=== PATIENT | male | born 1970 ===

== ENCOUNTER → 2020-05-10 | Outpatient (CLI) | payer OTHER | LOC: LAB SHORT 08:00 → LAB 08:00 | DX: D38.5 Neoplasm of uncertain behavior of other respiratory organs (principal) | CPT/HCPCS: 88305 ==

== ENCOUNTER 2020-12-07 08:13 | Day surgery (SDC) | payer OTHER ==
[~2020-12-07] VITALS: Ht 182.9 cm; Wt 88.4 kg
[~2020-12-07 08:13] MED LIST: LOSA50 PO
== END 2020-12-07 10:39 | disposition home or self-care (01) ==
LOC: ORSCSDS 08:13
PROVIDERS: Surgery
PROC: 0DBN8ZX Excision of Sigmoid Colon, Via Natural or Artificial Opening Endoscopic, Diagnostic (ICD-10-PCS; principal; 2020-12-07 09:30)
DX: K62.5 Hemorrhage of anus and rectum (principal); Z86.010 Personal history of colon polyps; K63.5 Polyp of colon; I10 Essential (primary) hypertension; F17.210 Nicotine dependence, cigarettes, uncomplicated; Z79.899 Other long term (current) drug therapy
CPT/HCPCS: 88305; J2250; J2704; J7120

== ENCOUNTER 2023-06-05 07:56 | Inpatient (IN) | payer OTHER ==
[~2023-06-05] VITALS: Ht 182.9 cm; Wt 77.6 kg
[2023-06-05] MEDS ORDERED: Pepto-Bismol262 M1 (08:48)
[2023-06-05] MEDS ORDERED: Calcium Carbon500 MG (08:48)
[2023-06-05] MEDS ORDERED: LOPE2C (08:49)
[2023-06-05 09:13] LABS: BASOPHILS PERCENT AUTO 1 % (0-2); EOSINOPHILS ABSOLUTE AUTO 0.02 K/mm3 (0.00-0.68); EOSINOPHILS PERCENT AUTO 0 % (0-6); Hematocrit 37.8 % (37.0-53.0); Hemoglobin 13.3 g/dL (13.5-17.5); IMMATURE GRAN ABSOLUTE AUTO 0.15 K/mm3 (0.00-0.10); IMMATURE GRAN PERCENT AUTO 1 % (0-1); LYMPHOCYTES ABSOLUTE AUTO 0.81 K/mm3 (0.84-5.20); LYMPHOCYTES PERCENT AUTO 4 % (21-46); MONOCYTES ABSOLUTE AUTO 2.36 K/mm3 (0.16-1.47); MONOCYTES PERCENT AUTO 11 % (4-13); Mean Corpuscular HGB 32.3 pg (26.0-34.0); Mean Corpuscular HGB Conc 35.2 g/dL (31.5-36.5); Mean Corpuscular Volume 92 fL (80-100); Mean Platelet Volume 9.2 fL (9.1-12.4); NEUTROPHILS ABSOLUTE AUTO 18.52 K/mm3 (1.96-9.15); NEUTROPHILS PERCENT AUTO 84 % (41-73); Platelet Count 466 K/mm3 (150-400); RDW Coefficient Variation 11.9 % (11.7-14.2); RDW Standard Deviation 40.4 fL (35.1-46.3); Red Blood Cell Count 4.12 M/mm3 (4.30-5.90); White Blood Cell Count 21.96 K/mm3 (4.00-11.30)
[2023-06-05 09:44] LABS: Albumin, Blood 2.2 g/dL (3.4-5.0); Albumin/Globulin Ratio 0.6 (0.8-1.8); Bilirubin, Total 0.5 mg/dL (0.1-1.0); Bun/Creatinine Ratio 9.3 (12.0-20.0); Calcium, Blood 8.3 mg/dL (8.5-10.1); Creatinine, Blood 0.76 mg/dL (0.60-1.20); Globulin, Blood 3.8 g/dL (2.2-4.0); Potassium, Blood 3.2 mmol/L (3.5-5.5)
[2023-06-05 13:14] VITALS: BP 115/72
--- NOTE | 2023-06-05 13:45 | NUR ---
ASSUMED CARE NOTE RECEIVED REPORT FROM NESSA IN THE ER AND ASSUMED CARE OF PT AT 1310. PT A&OX4, INDEPENDENT, VOIDING, AND TOLERATING PO. PT ABLE TO EAT JELLO AND DRINK SIPS OF WATER DURING ASSESSMENT. PT REPORTS BLOODY DIARRHEA W/ MUCUS. PAIN MANAGED PER EMAR. PT ORIENTED TO ROOM AND CALL LIGHT. CALL LIGHT WITHIN REACH AND PT ABLE TO MAKE NEEDS KNOWN.
[2023-06-05 15:53] VITALS: BP 116/75
--- NOTE | 2023-06-05 17:35 | NUR ---
SHIFT SUMMARY PT A&OX4, AMB IND, TOLERATING PO, AND VOIDING. PT ADMITS TO BLOODY DIARRHEA W/ MUCUS, DENIES N/V. PAIN MANAGED PER EMAR. NS @150 MLS/HR. CALL LIGHT WITHIN REACH AND PT ABLE TO MAKE NEEDS KNOWN.
[2023-06-05 20:20] VITALS: BP 135/85
[2023-06-06 04:57] VITALS: BP 112/71
--- NOTE | 2023-06-06 07:32 | NUR ---
Shift Summary Pt having frequent diahrrea, 3-4 through the night. Pt c/o of abdominal pain t/o the night which was well controlled by pain medications. Pt states he did have some nausea last night but not bad. Abdomen is tender to pressure. AOx4 and independent in the room.
[2023-06-06 07:50] VITALS: BP 119/77
[2023-06-06 12:59] LABS: Adenovirus F 40/41 Not Detected (NOT DETECT); Astrovirus Not Detected (NOT DETECT); Campylobacter Sp Not Detected (NOT DETECT); Cryptosporidium Not Detected (NOT DETECT); Cyclospora Cayetanensis Not Detected (NOT DETECT); E. Coli O157 Not Detected (NOT DETECT); Entamoeba Histolytica Not Detected (NOT DETECT); Enteroaggregative E. coli-EAEC Not Detected (NOT DETECT); Enteropathogenic E. coli-EPEC Not Detected (NOT DETECT); Enterotoxigenic E. coli-ETEC Not Detected (NOT DETECT); Giardia Lamblia Not Detected (NOT DETECT); Norovirus GI/GII Not Detected (NOT DETECT); Plesiomonas Shigelloides Not Detected (NOT DETECT); Rotavirus A Not Detected (NOT DETECT); Salmonella Sp Not Detected (NOT DETECT); Sapovirus Not Detected (NOT DETECT); Shiga Toxin-prod E. coli-STEC Not Detected (NOT DETECT); Shigella/Enteroin E. coli-EIEC Not Detected (NOT DETECT); Vibrio Cholerae Not Detected (NOT DETECT); Vibrio Sp Not Detected (NOT DETECT); Yersinia Enterocolitica Not Detected (NOT DETECT)
[2023-06-06 14:16] LABS: Albumin, Blood 1.7 g/dL (3.4-5.0); Anion Gap 4 mmol/L (6-16); Blood Urea Nitrogen 10 mg/dL (8-24); CO2, Blood 25 mmol/L (21-32); Calcium, Blood 7.8 mg/dL (8.5-10.1); Chloride, Blood 106 mmol/L (98-108); Creatinine, Blood 0.67 mg/dL (0.60-1.20); Glomerular Filtration Rate 112 (60-); Glucose, Blood 139 mg/dL (70-99); Phosphorus, Blood 3.4 mg/dL (2.5-4.9); Potassium, Blood 3.5 mmol/L (3.5-5.5); Sodium, Blood 135 mmol/L (136-145)
[2023-06-06 15:47] VITALS: BP 125/78
[2023-06-06 20:00] VITALS: BP 109/68
--- NOTE | 2023-06-06 20:12 | NUR ---
SHIFT SUMMARY- PT ALERT AND ORIENTED INDEPENDENT IN THE ROOM. NO ACUTE CHANGE T/O THE SHIFT, BEDSIDE REPORT COMPLETED WITH NIGHT RN. NS REDUCED TO 75ML/HR TODAY. PAIN APPEARS WELL MANAGED, MEDICATED WITH IV TORADOL PRIOR TO SHIFT CHANGE. NO S&S OF DISTRESS NOTED AT THE TIME OF REPORT.
[2023-06-07 03:58] VITALS: BP 122/77
[2023-06-07 05:07] LABS: Hematocrit 30.8 % (37.0-53.0); Hemoglobin 10.6 g/dL (13.5-17.5); Mean Corpuscular HGB Conc 34.4 g/dL (31.5-36.5); Mean Corpuscular Volume 93 fL (80-100); Mean Platelet Volume 9.5 fL (9.1-12.4); Platelet Count 444 K/mm3 (150-400); RDW Coefficient Variation 12.1 % (11.7-14.2); RDW Standard Deviation 41.9 fL (35.1-46.3); Red Blood Cell Count 3.31 M/mm3 (4.30-5.90); White Blood Cell Count 12.71 K/mm3 (4.00-11.30)
[2023-06-07 05:58] LABS: Albumin, Blood 1.6 g/dL (3.4-5.0); Anion Gap 7 mmol/L (6-16); Blood Urea Nitrogen 9 mg/dL (8-24); Bun/Creatinine Ratio 13.5 (12.0-20.0); CO2, Blood 24 mmol/L (21-32); Calcium, Blood 7.7 mg/dL (8.5-10.1); Chloride, Blood 104 mmol/L (98-108); Creatinine, Blood 0.67 mg/dL (0.60-1.20); Glomerular Filtration Rate 112 (60-); Glucose, Blood 99 mg/dL (70-99); Phosphorus, Blood 2.7 mg/dL (2.5-4.9); Potassium, Blood 3.2 mmol/L (3.5-5.5); Sodium, Blood 135 mmol/L (136-145)
[2023-06-07 06:06] LABS: BAND PERCENT MAN 28 % (0-8); BASOPHILS ABSOLUTE MAN 0.12 K/mm3 (0.00-0.23); BASOPHILS PERCENT MAN 1 % (0-2); EOSINOPHILS ABSOLUTE MAN 0.25 K/mm3 (0.00-0.68); EOSINOPHILS PERCENT MAN 2 % (0-6); LYMPHOCYTES PERCENT MAN 4 % (21-46); MONOCYTES ABSOLUTE MAN 1.39 K/mm3 (0.16-1.47); MONOCYTES PERCENT MAN 11 % (4-13); NEUTROPHILS ABSOLUTE MAN 10.42 K/mm3 (1.96-9.15); SEG NEUTROPHILS PERCENT MAN 54 % (41-73); TOTAL CELLS COUNTED 100
[2023-06-07 07:35] VITALS: BP 120/71
--- NOTE | 2023-06-07 07:38 | NUR ---
Shift Summary Pt continues to have frequent diahrrea with small amounts of blood and moderate-severe abdominal pain. Pt also had some nausea tonight, gave PRN Zofran and pain medications per EMAR. Rcving NS@75, AOx4, independent in the room.
--- NOTE | 2023-06-07 18:12 | NUR ---
SHIFT SUMMARY NO ACUTE CHANGES THIS SHIFT. CALL LIGHT WITHIN REACH AND PT ABLE TO MAKE NEEDS KNOWN.
[2023-06-07 19:42] VITALS: BP 121/68
--- NOTE | 2023-06-08 04:59 | NUR ---
SHIFT SUMMARY: PT IS ADMITTED FOR COLITIS AND IS A FULL CODE. IS ALERT AND ABLE TO MAKE NEED KNOWN. UP ADLIB KNOWING LIMITS AND CALLING FOR STAFF ASSISTANCE WHEN NEEDED. PAIN HAS BEEN CONTROLLED WITH PRN PAIN MANAGEMENT X1 THIS SHIFT. IV TO LEFT FOREARM IS PATENT AND RUNNING NS AT 75ML/H. IV TO RIGHT AC PARENT AND FLUSHED WITH 10ML NS. WAS GIVEN IN REPORT THAT HE HAS NOT EATEN VERY MUCH OVER AT LEAST THE LAST 24H. THIS SHIFT HE REQUESTED AND WAS PROVIDED SOME YOGURT X2, MINI CHEESE BRICKS X4, A MEAT SANDWICH, WAS PROVIDED HE ATE EVERYTHING BUT THE SANDWICH.
[2023-06-08 05:10] LABS: Hematocrit 31.9 % (37.0-53.0); Hemoglobin 10.9 g/dL (13.5-17.5); Mean Corpuscular HGB 31.5 pg (26.0-34.0); Mean Corpuscular HGB Conc 34.2 g/dL (31.5-36.5); Mean Corpuscular Volume 92 fL (80-100); Mean Platelet Volume 9.2 fL (9.1-12.4); Platelet Count 492 K/mm3 (150-400); RDW Standard Deviation 40.7 fL (35.1-46.3); Red Blood Cell Count 3.46 M/mm3 (4.30-5.90); White Blood Cell Count 9.95 K/mm3 (4.00-11.30)
[2023-06-08 05:25] VITALS: BP 129/81
[2023-06-08 05:40] LABS: Albumin, Blood 1.7 g/dL (3.4-5.0); Anion Gap 8 mmol/L (6-16); Blood Urea Nitrogen 6 mg/dL (8-24); Bun/Creatinine Ratio 8.6 (12.0-20.0); CO2, Blood 24 mmol/L (21-32); Calcium, Blood 7.6 mg/dL (8.5-10.1); Chloride, Blood 104 mmol/L (98-108); Glomerular Filtration Rate 111 (60-); Glucose, Blood 99 mg/dL (70-99); Phosphorus, Blood 3.2 mg/dL (2.5-4.9); Potassium, Blood 3.3 mmol/L (3.5-5.5); Sodium, Blood 136 mmol/L (136-145)
[2023-06-08 06:18] LABS: BAND PERCENT MAN 14 % (0-8); BASOPHILS PERCENT MAN 0 % (0-2); EOSINOPHILS PERCENT MAN 0 % (0-6); LYMPHOCYTES ABSOLUTE MAN 1.09 K/mm3 (0.84-5.20); LYMPHOCYTES PERCENT MAN 11 % (21-46); MONOCYTES ABSOLUTE MAN 1.19 K/mm3 (0.16-1.47); MONOCYTES PERCENT MAN 12 % (4-13); NEUTROPHILS ABSOLUTE MAN 7.66 K/mm3 (1.96-9.15); SEG NEUTROPHILS PERCENT MAN 63 % (41-73); TOTAL CELLS COUNTED 100
[2023-06-08 07:14] VITALS: BP 128/75
--- NOTE | 2023-06-08 17:40 | NUR ---
SHIFT SUMMARY: PT STATED THIS AFTERNOON THAT HE NOTED MORE BLOOD THAN USUAL IN HIS STOOL. REPORTED THIS TO DR. SULLIVAN, REQUESTED THAT LOVENOX BE D/C'D TO WHICH PROVIDER AGREED. TOLERATING PO FLUIDS AND ATTEMPTED TO EAT MORE. STARTED ON STEROIDS TODAY. MEDICATED FOR ABD PAIN PER EMAR. POTASSIUM REPLACED. INDEPENDENT IN ROOM.
[2023-06-08 20:05] VITALS: BP 110/70
[2023-06-09 04:50] LABS: Hematocrit 32.4 % (37.0-53.0); Mean Corpuscular HGB 31.3 pg (26.0-34.0); Mean Corpuscular Volume 92 fL (80-100); Mean Platelet Volume 9.1 fL (9.1-12.4); Platelet Count 557 K/mm3 (150-400); RDW Standard Deviation 40.4 fL (35.1-46.3); Red Blood Cell Count 3.52 M/mm3 (4.30-5.90); White Blood Cell Count 11.35 K/mm3 (4.00-11.30)
[2023-06-09 05:16] LABS: Albumin, Blood 1.8 g/dL (3.4-5.0); Anion Gap 5 mmol/L (6-16); Blood Urea Nitrogen 6 mg/dL (8-24); Bun/Creatinine Ratio 8.7 (12.0-20.0); CO2, Blood 27 mmol/L (21-32); Calcium, Blood 8.1 mg/dL (8.5-10.1); Chloride, Blood 107 mmol/L (98-108); Creatinine, Blood 0.69 mg/dL (0.60-1.20); Glomerular Filtration Rate 111 (60-); Glucose, Blood 135 mg/dL (70-99); Phosphorus, Blood 3.3 mg/dL (2.5-4.9); Potassium, Blood 3.6 mmol/L (3.5-5.5); Sodium, Blood 139 mmol/L (136-145)
[2023-06-09 05:54] LABS: BAND PERCENT MAN 15 % (0-8); BASOPHILS PERCENT MAN 0 % (0-2); EOSINOPHILS PERCENT MAN 0 % (0-6); LYMPHOCYTES % ATYPICAL MANUAL 1 % (0-0); LYMPHOCYTES ABSOLUTE MAN 0.68 K/mm3 (0.84-5.20); LYMPHOCYTES PERCENT MAN 5 % (21-46); MONOCYTES ABSOLUTE MAN 0.56 K/mm3 (0.16-1.47); MONOCYTES PERCENT MAN 5 % (4-13); SEG NEUTROPHILS PERCENT MAN 74 % (41-73); TOTAL CELLS COUNTED 100
[2023-06-09 07:07] VITALS: BP 128/83
--- NOTE | 2023-06-09 11:33 | NUR ---
PT REQUESTED TO GO TO HIS TRUCK TO GET HIS POWER CORD TO HIS PHONE WITH REASON HE NEEDS HIS PHONE IN HIS ROOM AT ALL TIMES SO HE CAN GET IMPORTANT PHONE CALLS. ON RETURN LEGAL ARBITRATORMoris MOON STATED SHE SMELLED CIGARETTE SMOKE ON PT AND ASKED IF HE HAD SMOKING MATERIALS ON HIM AND PT STATED "YES I DO." SARAI INFORMED PT OF NON SMOKING RULE IN HOSPITAL AND REQUESTED PT TO GIVE UP BINGO CALLER AND CIGARETTES IF HE HAD THEM DUE TO THE RULE. PT COMPLIED AND HANDED OVER A PACK OF [place]O'S AND A BINGO CALLER. ITEMS ARE LOCKED IN PT DRAWER OUTSIDE ROOM.
[2023-06-09 15:11] VITALS: BP 119/79
--- NOTE | 2023-06-09 19:30 | NUR ---
SHIFT SUMMARY: PT A/O X 4, IND IN ROOM PLEASANT AND COOPERATIVE. PT PAIN MANAGED WITH CURRENT MEDICATIONS. PT REPORTS EATING WELL AND TOLERATING FOOD. PT REPORTS HE HAD ABOUT 9 BM'S THROUGHOUT THE DAY AND BLOOD IN STOOL HAS TURNED FROM BRIGHT RED TO DARKER RED. PT DID REPORT HE MAY NEED A NICOTINE PATCH HE IS A SMOKER BUT IS HESITANT BECAUSE HE REPORTS HE HAS HAD BAD EXPERIENCE WITH NICOTINE PATCH. PT REPORTS HE SMOKES ABOUT 5 CIGARETTES PER DAY FOR THE PAST 5 WEEKS PRIOR HE SMOKED 1.5 PACKS. CIGARETTES AND LOG CARRIER OPERATOR WERE CONFISCATED THIS AM AND LOCKED IN DRAWER.
[2023-06-09 19:35] VITALS: BP 124/80
--- NOTE | 2023-06-10 04:10 | NUR ---
SHIFT SUMMARY JOSIE WAS ALERT AND FULLY ORIENTED AT START OF SHIFT. PT IND IN ROOM. PLEASANT AND COOPERATIVE. C/O DISCOMFORT IN ABD, HE SAYS ITS MORE OF A DISCOMFORT THAN PAIN. PT CONTINUES TO HAVE SMALL LOOSE STOOLS (3-4 TONIGHT). PT MEDICATED PER EMAR. NO ACUTE EVENTS TONIGHT, PT RESTING IN BED WITH CALL LIGHT IN REACH.
[2023-06-10 04:58] LABS: BASOPHILS ABSOLUTE AUTO 0.05 K/mm3 (0.00-0.23); BASOPHILS PERCENT AUTO 1 % (0-2); Hematocrit 31.1 % (37.0-53.0); Hemoglobin 10.6 g/dL (13.5-17.5); Mean Corpuscular HGB 31.5 pg (26.0-34.0); Mean Corpuscular HGB Conc 34.1 g/dL (31.5-36.5); Mean Corpuscular Volume 93 fL (80-100); Mean Platelet Volume 9.1 fL (9.1-12.4); Platelet Count 617 K/mm3 (150-400); RDW Standard Deviation 41.3 fL (35.1-46.3); Red Blood Cell Count 3.36 M/mm3 (4.30-5.90)
[2023-06-10 05:00] LABS: EOSINOPHILS ABSOLUTE AUTO 0.01 K/mm3 (0.00-0.68); EOSINOPHILS PERCENT AUTO 0 % (0-6); IMMATURE GRAN ABSOLUTE AUTO 0.07 K/mm3 (0.00-0.10); IMMATURE GRAN PERCENT AUTO 1 % (0-1); LYMPHOCYTES PERCENT AUTO 14 % (21-46); MONOCYTES ABSOLUTE AUTO 1.53 K/mm3 (0.16-1.47); MONOCYTES PERCENT AUTO 15 % (4-13); NEUTROPHILS ABSOLUTE AUTO 7.04 K/mm3 (1.96-9.15); NEUTROPHILS PERCENT AUTO 70 % (41-73)
[2023-06-10 05:44] VITALS: BP 129/87
[2023-06-10 06:00] LABS: Albumin, Blood 1.9 g/dL (3.4-5.0); Albumin/Globulin Ratio 0.6 (0.8-1.8); Bilirubin, Total 0.2 mg/dL (0.1-1.0); Bun/Creatinine Ratio 15.8 (12.0-20.0); Calcium, Blood 8.2 mg/dL (8.5-10.1); Creatinine, Blood 0.63 mg/dL (0.60-1.20); Globulin, Blood 3.3 g/dL (2.2-4.0); Potassium, Blood 3.5 mmol/L (3.5-5.5); Total Protein, Blood 5.2 g/dL (6.4-8.2)
[2023-06-10 07:27] VITALS: BP 130/85
--- NOTE | 2023-06-10 14:20 | NUR ---
PT CALLED AND UPON ENTERING HE WAS FULLY DRESSED. PT REQUESTED HIS CIGARETTES AND FUR FINISHER TAILOR THAT WAS LOCKED UP IN DRAWER. PT INFORMED OF RULE THIS IS A NON SMOKING CAMPUS AND HE IS NOT ALLOWED TO SMOKE ON THE GROUNDS. PT STATED "I DON'T CARE IT'S A STUPID RULE." PT THEN INFORMED IF HE CONTINUED TO TAKE HIS SMOKING MATERIALS WITH HIM TO HIS CAR HE WOULD BE HAVE TO HAVE A SITTER WATCH HIM. PT STATED "OKAY, GIVE ME MY FUR FINISHER TAILOR AND CIGARETTES." PT GIVEN HIS SMOKING MATERIALS REQUESTED. BIOCHEMISTRY TEACHER ANITA INFORMED OF INCIDENT. SECURITY CALLED AND GAVE DESCRIPTION OF PT AND LET THEM KNOW HIS INTENTIONS TO GO TO HIS VEHICLE WITH HIS CIGARETTES AND FUR FINISHER TAILOR.
--- NOTE | 2023-06-10 14:30 | NUR ---
PT RETURNED FROM OUTSIDE. PT ASKED IF HE WOULD LIKE TO HAVE A NICOTINE PATCH ORDERED AND PT AGREED. DR. HARDIN NOTIFIED PT WILL BE HAVING A 1:1 SITTER FOR IGNITION RISK. DR. HARDIN STATED HE WOULD PLACE ORDER FOR A NICOTINE PATCH.
[2023-06-10 15:29] VITALS: BP 119/85
--- NOTE | 2023-06-10 18:04 | NUR ---
SHIFT SUMMARY: PT A/O X 4 IND IN ROOM, PLEASANT. 1:1 SITTER PLACED FOR IGNITION RISK. PT HAS NICOTINE PATCH IN PLACE. PT REPORTS LESS FREQUENT BM'S, THEY ARE STILL BLOODY. ABD PAIN MANAGED WITH TRAMADOL AT THIS TIME.
[2023-06-10 19:28] VITALS: BP 130/75
[2023-06-11 04:25] VITALS: BP 133/86
--- NOTE | 2023-06-11 04:54 | NUR ---
SHIFT SUMMARY PATIENT IS A/O X4, PLEASANT, ABLE TO MAKE HIS NEEDS KNOWN AND CALLS APPROPRIATELY. PATIENT REPORTS HAVING 4-5 BM'S THIS SHIFT, LAST BM PATIENT USED A HAT-HE REPORTED NOT MUCH BLOOD IN A PREVIOUS BM-SCANT AMOUNT OF BLOOD SEEN IN STOOL. PATIENT C/O ABDOMINAL PAIN-MEDICATED PER EMAR X1. PATIENT REPORTS THAT HIS LAST BM WAS THE FIRMEST BM HE HAS HAD SINCE THIS STARTED. PATIENT IS INDEPENDENT IN ROOM. PATIENT HAS ONE ON ONE SITTER. NO S/S OF DISTRESS NOTED AT THIS TIME.
[2023-06-11 07:42] VITALS: BP 134/87
[2023-06-11 08:42] LABS: BASOPHILS ABSOLUTE AUTO 0.05 K/mm3 (0.00-0.23); BASOPHILS PERCENT AUTO 0 % (0-2); EOSINOPHILS ABSOLUTE AUTO 0.03 K/mm3 (0.00-0.68); EOSINOPHILS PERCENT AUTO 0 % (0-6); Hematocrit 36.3 % (37.0-53.0); Hemoglobin 12.1 g/dL (13.5-17.5); Mean Corpuscular HGB 31.1 pg (26.0-34.0); Mean Corpuscular HGB Conc 33.3 g/dL (31.5-36.5); Mean Corpuscular Volume 93 fL (80-100); Mean Platelet Volume 8.4 fL (9.1-12.4); Platelet Count 672 K/mm3 (150-400); RDW Coefficient Variation 12.2 % (11.7-14.2); RDW Standard Deviation 41.8 fL (35.1-46.3); Red Blood Cell Count 3.89 M/mm3 (4.30-5.90); White Blood Cell Count 12.99 K/mm3 (4.00-11.30)
[2023-06-11 08:44] LABS: IMMATURE GRAN ABSOLUTE AUTO 0.22 K/mm3 (0.00-0.10); IMMATURE GRAN PERCENT AUTO 2 % (0-1); LYMPHOCYTES ABSOLUTE AUTO 2.45 K/mm3 (0.84-5.20); LYMPHOCYTES PERCENT AUTO 19 % (21-46); MONOCYTES ABSOLUTE AUTO 1.79 K/mm3 (0.16-1.47); MONOCYTES PERCENT AUTO 14 % (4-13); NEUTROPHILS ABSOLUTE AUTO 8.45 K/mm3 (1.96-9.15); NEUTROPHILS PERCENT AUTO 65 % (41-73)
[2023-06-11 09:02] LABS: BAND PERCENT MAN 1 % (0-8); BASOPHILS PERCENT MAN 0 % (0-2); EOSINOPHILS PERCENT MAN 0 % (0-6); LYMPHOCYTES ABSOLUTE MAN 1.94 K/mm3 (0.84-5.20); LYMPHOCYTES PERCENT MAN 15 % (21-46); MONOCYTES ABSOLUTE MAN 1.03 K/mm3 (0.16-1.47); MONOCYTES PERCENT MAN 8 % (4-13); SEG NEUTROPHILS PERCENT MAN 76 % (41-73); TOTAL CELLS COUNTED 100
[2023-06-11 09:29] LABS: Albumin, Blood 2.2 g/dL (3.4-5.0); Albumin/Globulin Ratio 0.6 (0.8-1.8); Bilirubin, Total 0.2 mg/dL (0.1-1.0); Bun/Creatinine Ratio 14.9 (12.0-20.0); Calcium, Blood 8.4 mg/dL (8.5-10.1); Creatinine, Blood 0.74 mg/dL (0.60-1.20); Globulin, Blood 3.4 g/dL (2.2-4.0); Potassium, Blood 3.7 mmol/L (3.5-5.5); Total Protein, Blood 5.6 g/dL (6.4-8.2)
[2023-06-11 15:08] VITALS: BP 113/80
[2023-06-11 19:14] VITALS: BP 124/77
--- NOTE | 2023-06-11 19:53 | NUR ---
SHIFT SUMMARY: ROBSON IS A&OX4. VSS, NO ACUTE EVENTS OVERNIGHT. HE IS INDEPENDENT IN THE ROOM, TOLERATING PO INTAKE WELL, CONTINENT OF BOWEL AND BLADDER, AND REPORTS ADEQUATE PAIN CONTROL THIS SHIFT. BILATERAL IV'S PATENT, BUT DEMONSTRATED SCANT LEAKAGE WITH FLUSHING. PT REPORTS BLOOD IN STOOLS, PROVIDER AWARE. PT IS SITTING UP IN BED WITH THE CALL LIGHT IN REACH. REPORT WAS GIVEN TO PHARMACY STUDENT RN.
[2023-06-12 04:16] VITALS: BP 133/84
--- NOTE | 2023-06-12 04:27 | NUR ---
SHIFT SUMMARY NOC PT A/O X 4. PLEASANT AND COOPERATIVE WITH CARE. NO ACUTE CHANGES TO REPORT. PT STILL ON DIRECT OBSERVATION DUE TO IGNITION SOURCE RISK. SITTER HAS BEE SITTING IN ROOM TO BETTER HELP PT GET SOME SLEEP. PT ABD PAIN HAS BEEN MANAGED PER EMAR. STOOL SAMPLE IS STILL PENDING. PT IS CURRENTLY RESTING WITH BED IN LOWEST POSITION, AND CALL LIGHT WITHIN REACH.
[2023-06-12 07:33] VITALS: BP 119/83
[2023-06-12 09:47] LABS: BASOPHILS ABSOLUTE AUTO 0.06 K/mm3 (0.00-0.23); BASOPHILS PERCENT AUTO 1 % (0-2); EOSINOPHILS ABSOLUTE AUTO 0.04 K/mm3 (0.00-0.68); EOSINOPHILS PERCENT AUTO 0 % (0-6); Hematocrit 35.1 % (37.0-53.0); Mean Corpuscular HGB Conc 34.2 g/dL (31.5-36.5); Mean Corpuscular Volume 94 fL (80-100); Mean Platelet Volume 9.3 fL (9.1-12.4); Platelet Count 568 K/mm3 (150-400); RDW Coefficient Variation 12.3 % (11.7-14.2); RDW Standard Deviation 42.3 fL (35.1-46.3); Red Blood Cell Count 3.75 M/mm3 (4.30-5.90); White Blood Cell Count 13.28 K/mm3 (4.00-11.30)
[2023-06-12 09:50] LABS: IMMATURE GRAN ABSOLUTE AUTO 0.17 K/mm3 (0.00-0.10); IMMATURE GRAN PERCENT AUTO 1 % (0-1); LYMPHOCYTES ABSOLUTE AUTO 2.11 K/mm3 (0.84-5.20); LYMPHOCYTES PERCENT AUTO 16 % (21-46); MONOCYTES ABSOLUTE AUTO 0.98 K/mm3 (0.16-1.47); MONOCYTES PERCENT AUTO 7 % (4-13); NEUTROPHILS ABSOLUTE AUTO 9.92 K/mm3 (1.96-9.15); NEUTROPHILS PERCENT AUTO 75 % (41-73)
[2023-06-12 10:10] LABS: BAND PERCENT MAN 1 % (0-8); BASOPHILS PERCENT MAN 0 % (0-2); Bun/Creatinine Ratio 20.2 (12.0-20.0); Calcium, Blood 8.2 mg/dL (8.5-10.1); Creatinine, Blood 0.65 mg/dL (0.60-1.20); EOSINOPHILS PERCENT MAN 0 % (0-6); LYMPHOCYTES % ATYPICAL MANUAL 1 % (0-0); LYMPHOCYTES ABSOLUTE MAN 1.72 K/mm3 (0.84-5.20); LYMPHOCYTES PERCENT MAN 12 % (21-46); METAMYELOCYTE ABSOLUTE MAN 0.13 K/mm3 (0.00-0.00); METAMYELOCYTE PERCENT MAN 1 % (0-0); MONOCYTES ABSOLUTE MAN 0.26 K/mm3 (0.16-1.47); MONOCYTES PERCENT MAN 2 % (4-13); NEUTROPHILS ABSOLUTE MAN 11.15 K/mm3 (1.96-9.15); Potassium, Blood 3.4 mmol/L (3.5-5.5); SEG NEUTROPHILS PERCENT MAN 83 % (41-73); TOTAL CELLS COUNTED 100
[2023-06-12 15:50] VITALS: BP 119/78
--- NOTE | 2023-06-12 17:43 | NUR ---
PT IS A/OX4, PLEASANT AND COOPERATIVE. THE PT IS UP IND IN HIS ROOM. PT WAS MEDICATED FOR MILD ABD PAIN X1 SO FAR THIS SHIFT. THE DENIED N/V SO FAR THIS SHIFT. PT REPORTED HAVING A FORMED BM THIS AM, OTHER LOPEZ THE PT PT NOT HAD A BM SO FAR THIS SHIFT. NO SAMPLE COLLECTED YET. CALL LIGHT IN REACH. BED IN THE LOW POSITION
[2023-06-12 19:27] VITALS: BP 129/83
[2023-06-13 03:45] VITALS: BP 132/86
[2023-06-13 05:11] LABS: Hematocrit 35.4 % (37.0-53.0); Mean Corpuscular HGB 31.6 pg (26.0-34.0); Mean Corpuscular HGB Conc 33.9 g/dL (31.5-36.5); Mean Corpuscular Volume 93 fL (80-100); Mean Platelet Volume 9.1 fL (9.1-12.4); Platelet Count 681 K/mm3 (150-400); RDW Coefficient Variation 12.2 % (11.7-14.2); White Blood Cell Count 14.13 K/mm3 (4.00-11.30)
--- NOTE | 2023-06-13 05:23 | NUR ---
SHIFT SUMMARY NOC PT A/O X 4. PLEASANT AND COOPERATIVE WITH CARE. NO ACUTE CHANGES TO REPORT. STILL WAITING TO COLLECT STOOL SPECIMEN FOR LAB EXAMINATION. PT LAC IV LEAKING AND DC, RFA IV ACCESS STILL PATENT. PT REPORTS EAGERNESS TO DISCHARGE HOME SOON AND FOLLOW UP WITH GI OUT PATIENT. PT HAS NOT REQUIRED PAIN RX SO FAR AND REPORTS PAIN IS LESS SEVERE THAN PAST FEW DAYS. PT IS CURRENTLY RESTING WITH BED IN LOWEST POSITION, AND CALL LIGHT WITHIN REACH.
[2023-06-13 06:10] LABS: BASOPHILS PERCENT MAN 0 % (0-2); Bilirubin, Total 0.1 mg/dL (0.1-1.0); Bun/Creatinine Ratio 21.1 (12.0-20.0); Creatinine, Blood 0.9 mg/dL (0.60-1.20); EOSINOPHILS ABSOLUTE MAN 0.28 K/mm3 (0.00-0.68); EOSINOPHILS PERCENT MAN 2 % (0-6); LYMPHOCYTES % ATYPICAL MANUAL 1 % (0-0); LYMPHOCYTES ABSOLUTE MAN 2.82 K/mm3 (0.84-5.20); LYMPHOCYTES PERCENT MAN 19 % (21-46); MONOCYTES ABSOLUTE MAN 1.41 K/mm3 (0.16-1.47); MONOCYTES PERCENT MAN 10 % (4-13); Potassium, Blood 3.7 mmol/L (3.5-5.5); SEG NEUTROPHILS PERCENT MAN 68 % (41-73); TOTAL CELLS COUNTED 100; Total Protein, Blood 5.7 g/dL (6.4-8.2)
[2023-06-13 06:35] LABS: Albumin, Blood 2.3 g/dL (3.4-5.0); Albumin/Globulin Ratio 0.7 (0.8-1.8); Calcium, Blood 8.1 mg/dL (8.5-10.1); Globulin, Blood 3.4 g/dL (2.2-4.0)
[2023-06-13 08:15] VITALS: BP 119/88
[2023-06-13] MEDS ORDERED: Prednisone20 MG PO (11:48)
[2023-06-13] MEDS ORDERED: NICO21TP TOP (11:48)
[2023-06-13] MEDS ORDERED: PANTOPRAZOLE SO40 M1 PO (11:49)
[2023-06-13] MEDS ORDERED: TRAM50 PO (11:49)
--- NOTE | 2023-06-13 12:28 | NUR ---
DISCHARGE NOTE- PT WAS GIVEN VERBAL AND WRITTEN DISCHARGE INSTRUCTIONS, MEDS FAXED TO [facility] PER PT REQUEST. IV DC'D PRIOR TO DISCHARGE. PT INDEPENDENTLY GOT HIMSELF READY AND WILL BE ESCORTED OUT VIA WC BY THE [facility] AFTER HE EATS HIS LUNCH THAT JUST ARRIVED. NO S&S OF DISTRESS NOTED.
--- NOTE | 2023-06-13 12:37 | NUR ---
PT DECLINED ESCORT AND WALKED OUT ON HIS OWN NO S&S OF DISTRESS AT THE TIME OF DISCHARGE.
== END 2023-06-13 12:35 | disposition home or self-care (01) | DRG 392 ==
LOC: ER 07:56 → MEDS 10:52 → ENPENDDIS 06-13 11:03 → MEDS 06-13 12:35
PROVIDERS: Internal Medicine; Physician Assistant; ADMIT Family Medicine
DX: K52.9 Noninfective gastroenteritis and colitis, unspecified (principal); K92.1 Melena; I10 Essential (primary) hypertension; E86.0 Dehydration; E87.6 Hypokalemia; F17.200 Nicotine dependence, unspecified, uncomplicated; Z86.010 Personal history of colon polyps
CPT/HCPCS: 36415; 71046; 74177; 80048; 80053; 80069; 83735; 85025; 87015; 87045; 87046; 87205; 87507; 87899; 96361; 96365-59; 96367; 96375; 99285-25; A9270; J0456; J1650; J1885; J2405; J2543; J2930; J3480; J7030; J7050; J7060; Q9967